=== PATIENT | female | born 1955 | race Two or more races ===

== ENCOUNTER 2024-04-21 13:16 | Outpatient (AMB) | payer MEDICAID, SELFPAY ==
--- NOTE | 2024-04-21 13:45 | PD.ORTHCLVIS ---
Vital signs 04/21/24 13:49 Height 1.68 m Height Method Stated Weight 64.41 kg Weight Measurement Method Standing Scale BMI 22.8 BP 150/75 H Blood Pressure Source Automatic Cuff Blood Pressure Location Left Upper Arm Position Sitting Respiration 18 Pulse 76 Pulse Source Monitor Temp 97.3 F Temp Source Temporal Artery Scan Pulse Oximetry (%) 97 Oxygen Delivery Method Room Air Med/Allergies Allergies & Medications Allergies No Known Allergies Allergy (Verified 04/21/24 13:50) Medication Reconciliation amlodipine 2.5 mg tablet 2.5 mg PO QDAY 04/21/24 [History Confirmed 04/21/24] aspirin 81 mg tablet,delayed release 81 mg PO QDAY 04/21/24 [History Confirmed 04/21/24] atorvastatin 80 mg tablet 80 mg PO QDAY 04/21/24 [History Confirmed 04/21/24] benazepril 5 mg tablet 5 mg PO QDAY 04/21/24 [History Confirmed 04/21/24] Exam Exam Breathing is nonlabored. Patient has a normal mood and affect. Bilateral extremities were evaluated and demonstrates sensation intact to light touch. Palpable pedal pulses are present. No significant edema is present. Bilateral hips were examined. The patient has no pain with log roll of the hips. Internal rotation to 30 degrees and external rotation to 30 degrees is painless. Negative FADIR. Left knee was examined today. The left knee is in reasonable alignment. Range of motion from 0-120 degrees. Knee is stable to varus and valgus as well as AP translation with <5mm. Patient has a negative McMurrays. There is no pain with patellofemoral compression and no crepitus noted. The knee is nontender to palpation. The right knee was also examined. The right knee is in varus alignment. Range of motion from 0-115 degrees. Knee is stable to varus and valgus as well as AP translation with <5mm. Patient has a negative McMurrays. There is no pain with patellofemoral compression and no crepitus noted. The knee is tender to palpation medially. Assessment and Plan Problem List (1) Arthritis of right knee: Status: Acute Plan: Patient is a 61-year-old female with severe right knee arthritis. The pain is significantly affecting her quality life and happiness. We need weightbearing x-rays that I can view. Her report says that there is severe arthritis We will see her back after x-rays are done Advanced Care Planning Discussion Advance care planning discussed with:: patient Office Procedures GNS Level of Care Nursing/Assessment Patient Status: Initial/New Patient Nursing Assessment/Reassesment: Medication Reconciliation, Update PMH in EMR and Vital Signs Coordination of Care: Complex Care and Chronic Disease 1-5, Education Complex Pt/Fam, Consent,records obtained, informed consent, 1 Ins Authorization, Lab and Imaging orders, Results/Orders obtained and Staff clarify orders New Patient Charge New Patient Point Assignment: 1124 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 4 ([id number]) MA Intake Visit Data Collection New Patient or Established: New Patient (never been to [facility]) Reason for Visit:: RIGHT KNEE PAIN Seen by Clinical Staff ONLY (RN/MA): No 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 This been ongoing for a while. She was told she has severe arthritis and needs a knee replacement. The pain is affecting her quality life and happiness. She is walking with a severe limp and uses a walker. She has had multiple injections and has tried anti-inflammatories. She reports her diabetes is well-controlled Pain Pain level (0-10): 10 Pain duration: ALL DAY Pain quality: sharp Associated signs & symptoms: none Ambulatory data Ambulatory device: none Treatments Improvement with previous injections: No Improvement with PT: No Improvement with NSAIDS: no Review of Systems Review of Systems: All systems negative unless otherwise noted in HPI.
[2024-04-21 13:49] VITALS: BP 150/75; PULSE 76; RESP 18; TEMP 36.3; O2SAT 97; BMI 22.8
== END 2024-04-21 14:11 | disposition home or self-care (01) ==
LOC: HODSRG 13:16
PROVIDERS: Supervising Provider Orthopaedic Surgery Adult Reconstructive Orthopaedic Surgery; Visit Provider Orthopaedic Surgery Adult Reconstructive Orthopaedic Surgery
DX: M17.11 Unilateral primary osteoarthritis, right knee (principal); M25.562 Pain in left knee; M25.561 Pain in right knee; I10 Essential (primary) hypertension; E11.9 Type 2 diabetes mellitus without complications
CPT/HCPCS: 99204; G0463

== ENCOUNTER 2024-05-11 09:07 | Outpatient (AMB) | payer MEDICAID, SELFPAY ==
--- NOTE | 2024-05-11 09:55 | ORTHONT_ITS ---
Vital signs 05/11/24 09:56 Height 1.68 m Height Method Stated Weight 63.758 kg Weight Measurement Method Standing Scale BMI 22.6 BP 150/82 H Blood Pressure Source Automatic Cuff Blood Pressure Location Right Upper Arm Position Sitting Respiration 19 Pulse 60 Pulse Source Monitor Temp 97.8 F Temp Source Temporal Artery Scan Pulse Oximetry (%) 96 Oxygen Delivery Method Room Air Med/Allergies Allergies & Medications Allergies No Known Allergies Allergy (Verified 05/11/24 10:01) Medication Reconciliation amlodipine 2.5 mg tablet 2.5 mg PO QDAY 04/21/24 [History Confirmed 05/11/24] aspirin 81 mg tablet,delayed release 81 mg PO QDAY 04/21/24 [History Confirmed 05/11/24] atorvastatin 80 mg tablet 80 mg PO QDAY 04/21/24 [History Confirmed 05/11/24] benazepril 5 mg tablet 5 mg PO QDAY 04/21/24 [History Confirmed 05/11/24] Exam Exam Breathing is nonlabored. Patient has a normal mood and affect. Bilateral extremities were evaluated and demonstrates sensation intact to light touch. Palpable pedal pulses are present. No significant edema is present. Bilateral hips were examined. The patient has no pain with log roll of the hips. Internal rotation to 30 degrees and external rotation to 30 degrees is painless. Negative FADIR. Left knee was examined today. The left knee is in reasonable alignment. Range of motion from 0-120 degrees. Knee is stable to varus and valgus as well as AP translation with <5mm. Patient has a negative McMurrays. There is no pain with patellofemoral compression and no crepitus noted. The knee is nontender to palpation. The right knee was also examined. The right knee is in varus alignment. Range of motion from 0-115 degrees. Knee is stable to varus and valgus as well as AP translation with <5mm. Patient has a negative McMurrays. There is no pain with patellofemoral compression and no crepitus noted. The knee is tender to palpation medially. Patient has bilateral knee arthritis of significant severity worse on the right. There is complete obliteration of the medial joint space Assessment and Plan Problem List (1) Arthritis of right knee: Status: Acute Plan: Patient is a 61-year-old female with severe right knee arthritis. The pain is significantly affecting her quality life and happiness. We discussed total knee replacement is a reasonable option given her failure of conservative treatment. She would like to start on the right as this is significantly worse The nature and purpose of the total knee replacement, alternative method(s) of treatment, the material risks involved, and the possibility of complications were fully explained to the patient. The patient does NOT have any of the following contraindications to TKA: - Active infection of the knee joint, OR - Active systemic bacteremia, OR - Active skin infection or open wound at surgical site, OR - Neuropathic arthritis, OR - Severe, rapidly progressive neurological disease, OR - Severe medical condition that makes risks of surgery outweigh the potential benefit The patient was told the most common risks and complications associated with a total knee replacement include, but are not limited to: blood clots in the leg, fatal pulmonary embolism, dislocation of the prosthesis, intraoperative and postoperative fractures of the femur or tibia, infection, failure of the prosthesis or grafting materials, complications from anesthesia, reactions to blood transfusions, postoperative leg length inequality, instability of the knee replacement, nerve damage or injury, vascular injury, delayed wound healing, infection, other injury or even . In addition, there are risks associated with anesthesia given during this operation. Also, the patient was told that after undergoing a total knee replacement there may still be persistent pain or disability. The patient was informed that the success of this operation in part depends upon the mechanical devices which are going to be implanted and that these devices can fail or malfunction, and may need to be repaired or replaced and there are no guarantees as to the longevity of this device or its parts and that it or its parts could fail prematurely. The patient was also notified that during the course of surgery, there may be a need to use bone graft from donors, and that any bone graft used will be carefully screened for communicable diseases, including AIDS, hepatitis, Ja kob-Creutzfeldt, or other diseases, but despite the screening procedures, there is a small chance that they could contract one of these diseases. Finally, the patient was asked to follow completely and fully with all advice and recommended treatments, and that recovery and ultimate outcome are affected by their compliance with recommended treatment. We discussed the risks, benefits and treatment alternatives, and the patient is interested in proceeding with surgery. We will try to set this up as expeditiously as possible. Advanced Care Planning Discussion Advance care planning discussed with:: patient Office Procedures GNS Level of Care Nursing/Assessment Patient Status: Established Patient Nursing Assessment/Reassesment: Medication Reconciliation, Update PMH in EMR and Vital Signs Coordination of Care: Complex Care and Chronic Disease 1-5, Education Complex Pt/Fam, Consent,records obtained, informed consent, Results/Orders obtained and Staff clarify orders Established Patient Charge Established Patient Point Assignment: 95 Established Patient Point Charge: EP Level 3 (80-115) MA Intake Visit Data Collection New Patient or Established: Established Patient (seen at [facility] within 3 years) Reason for Visit:: XRAY RESULTS Seen by Clinical Staff ONLY (RN/MA): No Pharmacy Order Entry Technician Required: No PCP or OBGYN visit in last 3 months: Yes Hx Now: No Do You Feel Safe at Home: Yes Authorities Contacted: N/A Questionairres Past Medical History Past Medical History Have you ever been diagnosed with any of the following: Cardiology Problems Hypertension: Yes Subjective Visit Visit for: follow up visit, knee (RIGHT) and x-rays (RESULTS) Immunization / Flu Flu Vaccine in the Last 12 Months: No Flu Vaccine Exclusion Criteria: No Exclusion Criteria History of Present Illness Chief complaint: Bilateral knee total Patient is a pleasant 69-year-old female with bilateral knee pain worse on the right. This has been ongoing for a while. She was told she has severe arthritis and needs a knee replacement. The pain is affecting her quality life and happiness. She is walking with a severe limp and uses a walker. She has had multiple injections and has tried anti-inflammatories. She reports her diabetes is well-controlled. Pain Pain level (0-10): 6 Pain duration: CONSTANT Pain location: inside (medial) and anterior Pain quality: dull and aching Pain timing: night, increases with activity and stairs Associated signs & symptoms: numbness and weakness Ambulatory data Ambulatory device: none Treatments Improvement with previous injections: No Improvement with PT: No Improvement with NSAIDS: no Review of Systems Review of Systems: All systems negative unless otherwise noted in HPI.
[2024-05-11 09:56] VITALS: BP 150/82; PULSE 60; RESP 19; TEMP 36.6; O2SAT 96; BMI 22.6
== END 2024-05-11 10:25 | disposition home or self-care (01) ==
LOC: HODSRG 09:07
PROVIDERS: Supervising Provider Orthopaedic Surgery Adult Reconstructive Orthopaedic Surgery; Visit Provider Orthopaedic Surgery Adult Reconstructive Orthopaedic Surgery
DX: M17.11 Unilateral primary osteoarthritis, right knee (principal); M25.562 Pain in left knee; M25.561 Pain in right knee; I10 Essential (primary) hypertension; E11.9 Type 2 diabetes mellitus without complications
CPT/HCPCS: 99213; G0463

== ENCOUNTER → 2024-05-11 | Outpatient (CLI) | payer MEDICAID, SELFPAY ==
--- NOTE | 2024-05-11 07:30 | XR_ITS ---
Examination: CT right lower extremity, without contrast. 2-D sagittal reconstructions. 2-D coronal reconstructions. 3-D reconstructions. Date and time of exam:May 11, 2024 0845 hours INDICATIONS: Diagnosis primary unilateral osteoarthritis right knee right knee pain 10 years CTDI: vol (mGy):8.85 DLP: (mGycm):652 Technique: Multiple 1.25 mm axial sections of the right lower extremity without intravenous contrast have been obtained. 2-D sagittal and coronal reconstructions have been obtained. 3-D reconstructions have been obtained. Low dose protocols were performed. One or more of the following dose reduction techniques were used; automated exposure control, adjustment of the mA and/or KV according to patient size, use of iterative reconstruction technique. Findings: Significant osteopenia Moderate narrowing right hip joint no right hip fracture or dislocation Advanced right knee tricompartment osteoarthritis, most severe narrowing medial joint space No fracture No dislocation IMPRESSION: Advanced right knee tricompartment osteoarthritis
== END | disposition home or self-care (01) ==
LOC: CCTX 08:34
PROVIDERS: Referring Provider Orthopaedic Surgery Adult Reconstructive Orthopaedic Surgery; Visit Provider Orthopaedic Surgery Adult Reconstructive Orthopaedic Surgery
DX: M17.11 Unilateral primary osteoarthritis, right knee (principal)
CPT/HCPCS: 73700

== ENCOUNTER 2024-05-29 10:00 | Day surgery (SDC) | payer MEDICAID, SELFPAY ==
[2024-05-25 07:17] VITALS: BMI 27.1
[2024-05-25 08:44] LABS: Basophils # (Auto) 0.1 Thou/mm3 (0.0-0.2); Basophils % (Auto) 1 % (0-2.5); Eosinophils # (Auto) 0.4 Thou/mm3 (0.0-0.5); Eosinophils % (Auto) 4 % (0-10); Hematocrit 37.5 % (36.0-46.0); Hemoglobin 12.6 g/dL (12.0-16.0); Immature Granulocytes % (Auto) 1 % (0-0); Immature Granulocytes Auto 0.06 Thou/mm3 (0.00-0.00); Lymphocytes # (Auto) 3.1 Thou/mm3 (1.0-4.8); Lymphocytes % (Auto) 27 % (10-50); Mean Corpuscular HGB Conc 33.6 g/dl (31.0-37.0); Mean Corpuscular Hemoglobin 28.3 pg (25.0-35.0); Mean Corpuscular Volume 84 fL (80-100); Monocytes # (Auto) 0.8 Thou/mm3 (0.0-0.8); Monocytes % (Auto) 7 % (0-12); Neutrophils # (Auto) 7.2 Thou/mm3 (1.8-7.7); Neutrophils % (Auto) 62 % (37-80); Nucleated Red Blood Cell % 0 /100 WBC (0); Platelet Count 306 Thou/mm3 (140-440); RDW Standard Deviation 37.3 fL (36.4-46.3); Red Blood Count 4.46 Miln/mm3 (4.00-5.20); White Blood Count 11.7 Thou/mm3 (3.6-11.0)
[2024-05-25 09:05] LABS: Alanine Aminotransferase 28 U/L (10-49); Albumin, Serum 4.5 gm/dL (3.4-4.8); Albumin/Globulin Ratio 1.3 (1.2-2.2); Alkaline Phosphatase 94 U/L (46-116); Anion Gap 7 (7-16); Aspartate Amino Transferase 24 U/L (0-34); BUN/Creatinine Ratio 33 Ratio (12-20); Bilirubin,Total 0.5 mg/dL (0.3-1.2); Blood Urea Nitrogen 20 mg/dL (9-23); Calcium 9.9 mg/dL (8.3-10.6); Calcium (Corrected) 9.9 mg/dL (8.5-10.1); Carbon Dioxide 28.3 mMol/L (20.0-31.0); Chloride 100 mMol/L (98-107); Creatinine (Component) 0.6 mg/dL (0.6-1.3); Estimated Creatinine Clearance 77.6 mL/min (>60); Globulin 3.5 gm/dL (2.3-3.5); Glucose 110 mg/dL (74-106); Osmolality,Calculated 273 (275-295); Potassium 4.3 mMol/L (3.4-5.1); Sodium 135 mMol/L (136-145); eGFR > 60 See Note
[2024-05-25 09:16] LABS: INR 1.1 (0.9-1.3); Prothrombin Time 11.5 Seconds (9.0-12.2)
--- NOTE | 2024-05-26 12:01 | SUR.PREOP ---
Pt' son in law, Randy notified to bring pt at [address] for surgery.
[2024-05-29] VITALS (11 sets, daily range): BP systolic 144–168; BP diastolic 73–83; PULSE 56–78; RESP 12–20; TEMP 36.2–36.8; O2SAT 95–100; BMI 26.5
[2024-05-29] MEDS: ACETAMINOPHEN 325 MG TABLET 650 MG PO (10:41)
[2024-05-29] MEDS: PREGABALIN 75 MG CAPSULE PO (10:42)
[2024-05-29] MEDS: MELOXICAM 7.5 MG TABLET PO (10:42)
[2024-05-29] MEDS: RINGERS LACTATED 1000 ML 1,000 ML 20 ML IV (10:45)
--- NOTE | 2024-05-29 13:52 | ESOP_ITS ---
Date of Procedure 05/29/24 Pre Op Diagnosis right knee osteoarthritis Post Op Diagnosis right knee osteoarthritis Procedure right total knee replacement conchis Findings full thickness cartilage loss and osteophytes Procedure Description Indication: The patient is a 69 year old who has a long history of right knee pain. X-rays show degenerative arthritis involving the knee. Over the past several years the patient has had increasing pain, progressive limitation in function. He has failed conservative measures including activity modification, physical therapy, injections, anti-inflammatories, and assistive devices. After a lengthy discussion of the risks and benefits, the patient presents now for total knee replacement. The nature and purpose of the total knee replacement, alternative method(s) of treatment, the material risks involved, and the possibility of complications were fully explained to the patient. The patient was told the most common risks and complications associated with a total knee replacement include, but are not limited to blood clots in the leg, fatal pulmonary embolism, dislocation of the prosthesis, intraoperative and postoperative fractures of the femur or tibia, infection, failure of the prosthesis or grafting materials, complications from anesthesia, reactions to blood transfusions, postoperative leg length inequality, instability of the knee replacement, nerve damage or injury, vascular injury, delayed wound healing, infections, other injury or even . In addition, there are risks associated with anesthesia given during this operation, temporary or permanent numbness on the skin lateral to the incision can be a complication unique to total knee surgery, and kneeling can be painful after knee replacement surgery. Also, the patient was told that after undergoing a total knee replacement there may still be pain or disability. We discussed with the patient that we will be using a robot-assisted technology. We discussed that there is a possibility of converting to manual instrumentation. The patient was informed that the success of this operation in part depends upon the mechanical devices which are going to be implanted and that these devices can fail or malfunction, and may need to be repaired or replaced and there are no guarantees as to the longevity of this device or its part and that it or its parts could fail prematurely. Finally, the patient was asked to follow completely and fully with all advice and recommended treatments, and that recovery and ultimate outcome are affected by their compliance with recommended treatment. Surgical technique: Patient was marked and consented in the pre-operative area. The patient was brought to the operating room and placed on the operating table in a supine position. Prior to positioning, a timeout procedure was performed between the surgeon, the anesthesiologist, and the nursing staff where the patient and the operative side were identified and confirmed. After adequate general anesthetic was obtained, the right lower extremity was prepped and draped in the usual sterile fashion. A weight based dose of Cefazolin were administered within 1 hour prior to incision. The robot was preregistered and calirated before the incision. The extremity was exsanguinated with an esmarch badge and tourniquet inflated to 250mmHg. A midline incision was made. A median parapatellar arthrotomy was made. The patella was subluxed laterally. A medial release was performed to expose the medial tibia. His femoral and tibial pins were placed through an intra incisional manner for both cases. Every effort was made to ensure that the distalmost aspect of the pin was hung in the second cortex. The arrays were then tightened several times to ensure that it was fixed for the remainder of the case. Both femoral and tibial checkpoints were then placed. We then went through the registration process of the bone. We then assessed the knee deformity and attempted to correct it. We also used the robot to aid in judging laxity in both extension and flexion. Final based on laxity and alignment we changed the preoperative assessment to obtain proper proper implant positioning and to correct deformity. Attention was then placed to the tibia. We made a tibial cut using the robot ensuring that both the MCL and the patella tendon were protected with retractors. We then went to the femur and made the posterior cut followed by the anterior cut and the anterior chamfer. The bone was then removed and we made a distal femur cut and a posterior chamfer cut. We verified all cuts. A trial reduction was performed with a size 2 femoral component and a size 2 keeled tibial component. The patella tracked centrally, and no lateral retinacular release was necessary. The trial implants were removed. The arrays, pins, and checkpoints were all removed. We performed a verification that all pins were removed. The cut bone surfaces were lavaged. A size 2 right femoral component, a size 2 keeled tibial component were impacted into position. The knee was felt to be well balanced in the sagittal and coronal plane. The final 2x10 mm cruciate- substituting articular insert was impacted into the tibial tray. The knee was brought out to full extension, flexed up to 120 degrees. It was stable to varus and valgus stress and appropriately balanced in flexion and extension. The wounds were copiously irrigated following deflation of tourniquet. The medial retinaculum was reapproximated with #1 vicryl and quill. The subcutaneous tissues were closed with 0 and 2-0 interrupted Vicryl. The skin was closed with 3-0 Monofilament V loc suture. A sterile dressing was applied. The patient was transferred to a bed and brought to recovery in stable condition. The patient tolerated the procedure well. There were no intraoperative complications. Sponge and needle counts were correct times 2. As the attending surgeon, I attest I was present and performed the entire operation. Grafts/Implants Size 2 CR Femur Size 2 Tibia 10mm poly CS Anesthesia GETA Implants none Pathology / specimen None Pathology comment: none Estimated Blood Loss 150 Condition Stable Disposition same day Surgeon Jb Mosley MD Surgical Staff Operation Date: 05/29/24 14:15 Case Staff Anesthesiologist: Jairo Schmidt RN First Assistant: Odilia Briscoe
--- NOTE | 2024-05-29 13:59 | XR_ITS ---
Examination: Right knee 2 views Technique one AP lateral right knee 2 views Exam date 9: May 29, 2024 1415 hours INDICATIONS: Postop right knee replacement today. FINDINGS: Total right knee arthroplasty. Satisfactory alignment. Moderate osteopenia. No fracture. IMPRESSION: Total right knee arthroplasty with satisfactory alignment
--- NOTE | 2024-05-29 14:11 | SUR.PHASEI ---
1411: Pt. AAOx4, vitals stable, breathing unlabored, no complaint of pain or nausea, dressing to right knee CDI, no active bleed noted, pt. able to wiggle bilateral feet, cap refill to bilateral feet less than 3 seconds, bilateral dorsalis pedis pulses strong and regular, report received from Teodoro ALLEN and Tawnya ALLEN.
--- NOTE | 2024-05-29 16:10 | SUR.PHASEII ---
1610: Pt. AAOx4, vitals stable, breathing unlabored, no complaint of pain or nausea, dressing to right knee CDI, no active bleed noted, bilateral dorsalis pedis pulses strong and regular, cap refill to bilateral feet less than 3 seconds, pt. ambulated with PT, Tolerated well, pt. tolerated sips of water well, gave discharge instructions to the pt. and her ride, both verbalized understanding and had no further questions. Pt. left with all personal belongings.
== END 2024-05-29 16:10 | disposition home or self-care (01) ==
PROVIDERS: Anesthesiology; PCP Physician Assistant; Referring Provider Orthopaedic Surgery Adult Reconstructive Orthopaedic Surgery; Visit Provider Orthopaedic Surgery Adult Reconstructive Orthopaedic Surgery
PROC: (CPT 27447; principal; 2024-05-29 14:15)
DX: M17.11 Unilateral primary osteoarthritis, right knee (principal)
CPT/HCPCS: 27447; 20985; 36415; 73560; 80053; 85025; 85610; 85730; 97162; A4217; C1713; C1776; J0131; J0690; J1100; J2250; J2371; J2405; J2704; J2795; J3010; J3490; J7030; J7120; J7999; A4648; A4649; A9270

== ENCOUNTER 2024-06-16 14:31 | Outpatient (AMB) | payer MEDICAID, SELFPAY ==
[2024-06-16 14:44] VITALS: BP 154/77; PULSE 72; RESP 18; TEMP 36.5; O2SAT 97; BMI 27.1
--- NOTE | 2024-06-16 14:44 | ORTHONT_ITS ---
Vital signs 06/16/24 14:44 Height 1.55 m Height Method Stated Weight 65.346 kg Weight Measurement Method Standing Scale BMI 27.1 BP 154/77 H Blood Pressure Source Automatic Cuff Blood Pressure Location Right Upper Arm Position Sitting Respiration 18 Pulse 72 Pulse Source Monitor Temp 97.7 F Temp Source Temporal Artery Scan Pulse Oximetry (%) 97 Oxygen Delivery Method Room Air Med/Allergies Allergies & Medications Allergies No Known Allergies Allergy (Verified 06/16/24 14:48) Medication Reconciliation amlodipine 2.5 mg tablet 2.5 mg PO QDAY 04/21/24 [History Confirmed 06/16/24] aspirin 81 mg tablet,delayed release 81 mg PO QDAY 04/21/24 [History Confirmed 06/16/24] atorvastatin 80 mg tablet 80 mg PO QDAY 04/21/24 [History Confirmed 06/16/24] benazepril 40 mg tablet 40 mg PO QDAY 05/25/24 [History Confirmed 06/16/24] metformin 850 mg tablet 850 mg PO QDAY 05/25/24 [History Confirmed 06/16/24] acetaminophen 500 mg tablet (Acetaminophen Extra Strength) 1,000 mg (2 x 500 mg) PO Q6H PRN pain #90 tabs 05/29/24 [Rx Confirmed 06/16/24] aspirin 81 mg tablet,delayed release 81 mg PO BID #60 tabs 05/29/24 [Rx Confirmed 06/16/24] doxycycline hyclate 100 mg tablet 100 mg PO BID #14 tabs 05/29/24 [Rx Confirmed 06/16/24] gabapentin 300 mg capsule 300 mg PO .qhs #30 caps 05/29/24 [Rx Confirmed 06/16/24] sennosides 8.6 mg-docusate sodium 50 mg tablet (Senna-S) 1 tab-cap PO QDAY #30 tabs 05/29/24 [Rx Confirmed 06/16/24] oxycodone 5 mg tablet 5 mg PO Q6H PRN pain #28 tabs 06/16/24 [Rx] pantoprazole 40 mg tablet,delayed release 40 mg PO QDAY #30 tabs 06/16/24 [Rx] Exam Exam Breathing is nonlabored. Patient has a normal mood and affect. Bilateral extremities were evaluated and demonstrates sensation intact to light touch. Palpable pedal pulses are present. No significant edema is present. Bilateral hips were examined. The patient has no pain with log roll of the hips. Internal rotation to 30 degrees and external rotation to 30 degrees is painless. Negative FADIR. Left knee was examined today. The left knee is in reasonable alignment. Range of motion from 0-120 degrees. Knee is stable to varus and valgus as well as AP translation with <5mm. Patient has a negative McMurrays. There is no pain with patellofemoral compression and no crepitus noted. The knee is nontender to palpation. Right knee incision is clean dry intact. Range of motion is 0 to 100 degrees Assessment and Plan Problem List (1) Arthritis of right knee: Status: Acute Plan: Patient is a 61-year-old female Status post right total knee replacement. She is doing well. She has been pain. She should start outpatient physical therapy and we will see her in approximately 4 weeks Advanced Care Planning Discussion Advance care planning discussed with:: patient Office Procedures GNS Level of Care Nursing/Assessment Patient Status: Established Patient Nursing Assessment/Reassesment: Medication Reconciliation, Update PMH in EMR and Vital Signs Coordination of Care: Complex Care and Chronic Disease 1-5, Education Complex Pt/Fam, Consent,records obtained, informed consent, Lab and Imaging orders, Results/Orders obtained and Staff clarify orders Special Needs: Language special needs Established Patient Charge Established Patient Point Assignment: 110 Established Patient Point Charge: EP Level 3 (80-115) MA Intake Visit Data Collection New Patient or Established: Established Patient (seen at [facility] within 3 years) Reason for Visit:: 2 WKS POST OP Seen by Clinical Staff ONLY (RN/MA): No Verbal consent obtained for Telemed visit?: No Instructional Coordinator Required: Yes PCP or OBGYN visit in last 3 months: Yes Hx Now: No Do You Feel Safe at Home: Yes Authorities Contacted: N/A Questionairres Past Medical History Past Medical History Have you ever been diagnosed with any of the following: Neurological Problems Seizures: No Cardiology Problems Hypercholesterolemia: Yes Congestive Heart Failure: No Hypertension: Yes Respiratory Problems Chronic Obstructive Pulmonary Disease (COPD): No Stomache/Intestinal Problems Hepatitis: No Genital/Urinary Problems Renal Disease: No Reproductive Problems Previous Pregnancies: Yes Musculoskeletal Problems Arthritis: Yes Head,Eye,Nose,Throat Problems Cataracts: Yes (Left) Endocrine Problems Diabetes Mellitus Type 1: No Diabetes Mellitus Type 2: Yes Other Problems Hospitalization: No Shingles: No Blood Transfusions: No Blood Transfusion Reaction: No Anesthesia Reactions: No Chicken Pox: No Cancer: No Subjective Visit Visit for: post op #1 and knee Immunization / Flu Flu Vaccine in the Last 12 Months: No Flu Vaccine Exclusion Criteria: No Exclusion Criteria History of Present Illness Chief complaint: 2 WK POST OP Patient is 2-1/2 weeks out from a right total knee replacement he is doing well. She has minimal pain. Incision looks great. Pain Pain level (0-10): 4 Pain duration: ALL DAY Pain location: inside (medial), outside (lateral), anterior and posterior Pain quality: sharp, dull and aching Pain timing: increases with activity Associated signs & symptoms: none Ambulatory data Ambulatory device: cane Treatments Improvement with previous injections: No Improvement with PT: No Improvement with NSAIDS: no Review of Systems Review of Systems: All systems negative unless otherwise noted in HPI.
== END 2024-06-16 15:10 | disposition home or self-care (01) ==
LOC: HODSRG 14:31
PROVIDERS: PCP Physician Assistant; Referring Provider Physician Assistant; Supervising Provider Orthopaedic Surgery Adult Reconstructive Orthopaedic Surgery; Visit Provider Orthopaedic Surgery Adult Reconstructive Orthopaedic Surgery
DX: M17.11 Unilateral primary osteoarthritis, right knee (principal); E78.00 Pure hypercholesterolemia, unspecified; I10 Essential (primary) hypertension; E11.9 Type 2 diabetes mellitus without complications
CPT/HCPCS: 99213; G0463

== ENCOUNTER 2024-07-18 09:36 | Outpatient (AMB) | payer MEDICAID, SELFPAY ==
[2024-07-18 10:05] VITALS: BP 155/83; PULSE 76; RESP 18; TEMP 36.7; O2SAT 96; BMI 26.5
--- NOTE | 2024-07-18 10:05 | PD.ORTHCLVIS ---
Vital signs 07/18/24 10:05 Height 1.55 m Height Method Stated Weight 63.73 kg Weight Measurement Method Standing Scale BMI 26.5 BP 155/83 H Blood Pressure Source Automatic Cuff Blood Pressure Location Left Upper Arm Position Sitting Respiration 18 Pulse 76 Pulse Source Monitor Temp 98.0 F Temp Source Temporal Artery Scan Pulse Oximetry (%) 96 Oxygen Delivery Method Room Air Med/Allergies Allergies & Medications Allergies No Known Allergies Allergy (Verified 07/18/24 10:05) Medication Reconciliation amlodipine 2.5 mg tablet 2.5 mg PO QDAY 04/21/24 [History Confirmed 07/18/24] atorvastatin 80 mg tablet 80 mg PO QDAY 04/21/24 [History Confirmed 07/18/24] benazepril 40 mg tablet 40 mg PO QDAY 05/25/24 [History Confirmed 07/18/24] metformin 850 mg tablet 850 mg PO QDAY 05/25/24 [History Confirmed 07/18/24] acetaminophen 500 mg tablet (Acetaminophen Extra Strength) 1,000 mg (2 x 500 mg) PO Q6H PRN pain #90 tabs 05/29/24 [Rx Confirmed 07/18/24] aspirin 81 mg tablet,delayed release 81 mg PO BID #60 tabs 05/29/24 [Rx Confirmed 07/18/24] doxycycline hyclate 100 mg tablet 100 mg PO BID #14 tabs 05/29/24 [Rx Confirmed 07/18/24] gabapentin 300 mg capsule 300 mg PO .qhs #30 caps 05/29/24 [Rx Confirmed 07/18/24] sennosides 8.6 mg-docusate sodium 50 mg tablet (Senna-S) 1 tab-cap PO QDAY #30 tabs 05/29/24 [Rx Confirmed 07/18/24] oxycodone 5 mg tablet 5 mg PO Q6H PRN pain #28 tabs 06/16/24 [Rx Confirmed 07/18/24] pantoprazole 40 mg tablet,delayed release 40 mg PO QDAY #30 tabs 06/16/24 [Rx Confirmed 07/18/24] Exam Exam Breathing is nonlabored. Patient has a normal mood and affect. Bilateral extremities were evaluated and demonstrates sensation intact to light touch. Palpable pedal pulses are present. No significant edema is present. Bilateral hips were examined. The patient has no pain with log roll of the hips. Internal rotation to 30 degrees and external rotation to 30 degrees is painless. Negative FADIR. Left knee was examined today. The left knee is in reasonable alignment. Range of motion from 0-120 degrees. Knee is stable to varus and valgus as well as AP translation with <5mm. Patient has a negative McMurrays. There is no pain with patellofemoral compression and no crepitus noted. The knee is nontender to palpation. Right knee incision is clean dry intact. Range of motion is 0 to 100 degrees Assessment and Plan Problem List (1) Arthritis of right knee: Status: Acute Plan: Patient is a 61-year-old female Status post right total knee replacement. She is doing well. She has been pain. She should start outpatient physical therapy and we will see her in approximately 6 weeks Advanced Care Planning Discussion Advance care planning discussed with:: patient and child Office Procedures GNS Level of Care Nursing/Assessment Patient Status: Established Patient Nursing Assessment/Reassesment: Medication Reconciliation, Update PMH in EMR and Vital Signs Coordination of Care: Complex Care and Chronic Disease 1-5, Education Complex Pt/Fam, Consent,records obtained, informed consent, Results/Orders obtained and Staff clarify orders Established Patient Charge Established Patient Point Assignment: 95 Established Patient Point Charge: EP Level 3 (80-115) MA Intake Visit Data Collection New Patient or Established: Established Patient (seen at [facility] within 3 years) Reason for Visit:: 4 WEEK POST OP R TKA Seen by Clinical Staff ONLY (RN/MA): No Verbal consent obtained for Telemed visit?: No [employer] Required: No PCP or OBGYN visit in last 3 months: Yes Hx Now: No Do You Feel Safe at Home: Yes Authorities Contacted: N/A Questionairres Past Medical History Past Medical History Have you ever been diagnosed with any of the following: Neurological Problems Seizures: No Cardiology Problems Hypercholesterolemia: Yes Congestive Heart Failure: No Hypertension: Yes Respiratory Problems Chronic Obstructive Pulmonary Disease (COPD): No Smoking: No Smoking Exposure: No Stomache/Intestinal Problems Hepatitis: No Genital/Urinary Problems Renal Disease: No Reproductive Problems Previous Pregnancies: Yes Musculoskeletal Problems Arthritis: Yes Head,Eye,Nose,Throat Problems Cataracts: Yes (Left) Endocrine Problems Diabetes Mellitus Type 1: No Diabetes Mellitus Type 2: Yes Other Problems Hospitalization: No Shingles: No Blood Transfusions: No Blood Transfusion Reaction: No Anesthesia Reactions: No Chicken Pox: No Cancer: No Subjective Visit Visit for: follow up visit, post op #2 and knee Immunization / Flu Flu Vaccine in the Last 12 Months: No Flu Vaccine Exclusion Criteria: No Exclusion Criteria History of Present Illness Chief complaint: 6WK POST OP Patient is 6 weeks out from a right total knee replacement he is doing well. She has minimal pain. Incision looks great. Pain Pain level (0-10): 3 Pain duration: ON AND OFF Pain location: inside (medial) and anterior Pain quality: aching and tingling Pain timing: increases with activity Associated signs & symptoms: numbness Ambulatory data Ambulatory device: cane Treatments Improvement with previous injections: No Improvement with PT: No Improvement with NSAIDS: no Review of Systems Review of Systems: All systems negative unless otherwise noted in HPI.
== END 2024-07-18 10:23 | disposition home or self-care (01) ==
LOC: HODSRG 09:36
PROVIDERS: PCP Physician Assistant; Referring Provider Physician Assistant; Supervising Provider Orthopaedic Surgery Adult Reconstructive Orthopaedic Surgery; Visit Provider Orthopaedic Surgery Adult Reconstructive Orthopaedic Surgery
DX: M17.11 Unilateral primary osteoarthritis, right knee (principal); Z96.651 Presence of right artificial knee joint; E78.00 Pure hypercholesterolemia, unspecified; I10 Essential (primary) hypertension
CPT/HCPCS: 99213; G0463

== ENCOUNTER 2024-09-12 09:55 | Outpatient (AMB) | payer MEDICAID, SELFPAY ==
--- NOTE | 2024-09-12 10:39 | PD.ORTHCLVIS ---
Vital signs 09/12/24 10:40 Height 1.55 m Height Method Stated Weight 62.199 kg Weight Measurement Method Standing Scale BMI 25.9 BP 164/92 H Blood Pressure Source Automatic Cuff Blood Pressure Location Left Upper Arm Position Sitting Respiration 19 Pulse 72 Pulse Source Monitor Temp 97.7 F Temp Source Temporal Artery Scan Pulse Oximetry (%) 97 Oxygen Delivery Method Room Air Med/Allergies Allergies & Medications Allergies No Known Allergies Allergy (Verified 09/12/24 10:44) Medication Reconciliation amlodipine 2.5 mg tablet 2.5 mg PO QDAY 04/21/24 [History Confirmed 09/12/24] atorvastatin 80 mg tablet 80 mg PO QDAY 04/21/24 [History Confirmed 09/12/24] benazepril 40 mg tablet 40 mg PO QDAY 05/25/24 [History Confirmed 09/12/24] metformin 850 mg tablet 850 mg PO QDAY 05/25/24 [History Confirmed 09/12/24] acetaminophen 500 mg tablet (Acetaminophen Extra Strength) 1,000 mg (2 x 500 mg) PO Q6H PRN pain #90 tabs 05/29/24 [Rx Confirmed 09/12/24] aspirin 81 mg tablet,delayed release 81 mg PO BID #60 tabs 05/29/24 [Rx Confirmed 09/12/24] doxycycline hyclate 100 mg tablet 100 mg PO BID #14 tabs 05/29/24 [Rx Confirmed 09/12/24] gabapentin 300 mg capsule 300 mg PO .qhs #30 caps 05/29/24 [Rx Confirmed 09/12/24] sennosides 8.6 mg-docusate sodium 50 mg tablet (Senna-S) 1 tab-cap PO QDAY #30 tabs 05/29/24 [Rx Confirmed 09/12/24] oxycodone 5 mg tablet 5 mg PO Q6H PRN pain #28 tabs 06/16/24 [Rx Confirmed 09/12/24] pantoprazole 40 mg tablet,delayed release 40 mg PO QDAY #30 tabs 06/16/24 [Rx Confirmed 09/12/24] meloxicam 7.5 mg tablet 7.5 mg PO QDAY #45 tabs 09/12/24 [Rx] Exam Exam Breathing is nonlabored. Patient has a normal mood and affect. Bilateral extremities were evaluated and demonstrates sensation intact to light touch. Palpable pedal pulses are present. No significant edema is present. Bilateral hips were examined. The patient has no pain with log roll of the hips. Internal rotation to 30 degrees and external rotation to 30 degrees is painless. Negative FADIR. Left knee was examined today. The left knee is in reasonable alignment. Range of motion from 0-120 degrees. Knee is stable to varus and valgus as well as AP translation with <5mm. Patient has a negative McMurrays. There is no pain with patellofemoral compression and no crepitus noted. The knee is nontender to palpation. Right knee incision is clean dry intact. Range of motion is 0 to 100 degrees Assessment and Plan Problem List (1) Arthritis of right knee: Status: Acute Plan: Patient is a 61-year-old female Status post right total knee replacement. She is doing well. She has been pain. Outpatient physical therapy. I will send 3 months. She will need x-rays today. She is doing well and reports the pain is improved from before surgery Advanced Care Planning Discussion Advance care planning discussed with:: patient Office Procedures GNS Level of Care Nursing/Assessment Patient Status: Established Patient Nursing Assessment/Reassesment: Medication Reconciliation, Update PMH in EMR and Vital Signs Coordination of Care: Complex Care and Chronic Disease 1-5, Education Complex Pt/Fam, Consent,records obtained, informed consent, Results/Orders obtained and Staff clarify orders Established Patient Charge Established Patient Point Assignment: 95 Established Patient Point Charge: EP Level 3 (80-115) MA Intake Visit Data Collection New Patient or Established: Established Patient (seen at [facility] within 3 years) Reason for Visit:: 2 MTH F/U Seen by Clinical Staff ONLY (RN/MA): No PCP or OBGYN visit in last 3 months: Yes Hx Now: No Do You Feel Safe at Home: Yes Authorities Contacted: N/A Questionairres Past Medical History Past Medical History Have you ever been diagnosed with any of the following: Neurological Problems Seizures: No Cardiology Problems Hypercholesterolemia: Yes Congestive Heart Failure: No Hypertension: Yes Respiratory Problems Chronic Obstructive Pulmonary Disease (COPD): No Smoking: No Smoking Exposure: No Stomache/Intestinal Problems Hepatitis: No Genital/Urinary Problems Renal Disease: No Reproductive Problems Previous Pregnancies: Yes Musculoskeletal Problems Arthritis: Yes Head,Eye,Nose,Throat Problems Cataracts: Yes (Left) Endocrine Problems Diabetes Mellitus Type 1: No Diabetes Mellitus Type 2: Yes Other Problems Hospitalization: No Shingles: No Blood Transfusions: No Blood Transfusion Reaction: No Anesthesia Reactions: No Chicken Pox: No Cancer: No Subjective Visit Visit for: follow up visit and knee Immunization / Flu Flu Vaccine in the Last 12 Months: No Flu Vaccine Exclusion Criteria: No Exclusion Criteria History of Present Illness Chief complaint: 6WK POST OP Patient is 6 weeks out from a right total knee replacement he is doing well. She has some pain still. Incision looks great. Pain Pain level (0-10): 7 Pain duration: CONSTANT Pain location: inside (medial) and anterior Pain quality: sharp, dull, burning and tingling Pain timing: increases with activity Associated signs & symptoms: numbness Ambulatory data Ambulatory device: cane Treatments Improvement with previous injections: No Improvement with PT: No Improvement with NSAIDS: no Review of Systems Review of Systems: All systems negative unless otherwise noted in HPI.
[2024-09-12 10:40] VITALS: BP 164/92; PULSE 72; RESP 19; TEMP 36.5; O2SAT 97; BMI 25.9
--- NOTE | 2024-09-12 10:50 | XR_ITS ---
Examination: Bilateral AP knees standing single view Right knee PA lateral axial 3 views TECHNIQUE: Bilateral AP knees standing single view Right knee PA flexion standing, right knee lateral standing, right knee axial 3 views total 4 views INDICATIONS: Knee pain years. FINDINGS: Significant osteopenia. Total right knee arthroplasty. Satisfactory alignment No loosening of the prosthetic components Moderate thinning cartilage posterior surface patella Mild to moderate osteoarthritis medial lateral joint spaces left knee IMPRESSION: Total right knee arthroplasty with satisfactory alignment
== END 2024-09-12 10:54 | disposition home or self-care (01) ==
LOC: HODSRG 09:55
PROVIDERS: PCP Physician Assistant; Referring Provider Physician Assistant; Supervising Provider Orthopaedic Surgery Adult Reconstructive Orthopaedic Surgery; Visit Provider Orthopaedic Surgery Adult Reconstructive Orthopaedic Surgery
DX: M17.11 Unilateral primary osteoarthritis, right knee (principal); Z96.651 Presence of right artificial knee joint; I10 Essential (primary) hypertension; E78.00 Pure hypercholesterolemia, unspecified; E11.9 Type 2 diabetes mellitus without complications
CPT/HCPCS: 73564; 99213; G0463

== ENCOUNTER 2024-10-10 14:01 | Outpatient (AMB) | payer MEDICAID, SELFPAY ==
[2024-10-10 14:31] VITALS: BP 155/79; PULSE 81; RESP 18; TEMP 36.6; O2SAT 96; BMI 26.2
--- NOTE | 2024-10-10 14:31 | ORTHONT_ITS ---
Vital signs 10/10/24 14:31 Height 1.55 m Height Method Stated Weight 63.049 kg Weight Measurement Method Standing Scale BMI 26.2 BP 155/79 H Blood Pressure Source Automatic Cuff Blood Pressure Location Left Upper Arm Position Sitting Respiration 18 Pulse 81 Pulse Source Monitor Temp 97.8 F Temp Source Temporal Artery Scan Pulse Oximetry (%) 96 Oxygen Delivery Method Room Air Med/Allergies Allergies & Medications Allergies No Known Allergies Allergy (Verified 10/10/24 14:32) Medication Reconciliation amlodipine 2.5 mg tablet 2.5 mg PO QDAY 04/21/24 [History Confirmed 10/10/24] atorvastatin 80 mg tablet 80 mg PO QDAY 04/21/24 [History Confirmed 10/10/24] benazepril 40 mg tablet 40 mg PO QDAY 05/25/24 [History Confirmed 10/10/24] metformin 850 mg tablet 850 mg PO QDAY 05/25/24 [History Confirmed 10/10/24] acetaminophen 500 mg tablet (Acetaminophen Extra Strength) 1,000 mg (2 x 500 mg) PO Q6H PRN pain #90 tabs 05/29/24 [Rx Confirmed 10/10/24] aspirin 81 mg tablet,delayed release 81 mg PO BID #60 tabs 05/29/24 [Rx Confirmed 10/10/24] doxycycline hyclate 100 mg tablet 100 mg PO BID #14 tabs 05/29/24 [Rx Confirmed 10/10/24] gabapentin 300 mg capsule 300 mg PO .qhs #30 caps 05/29/24 [Rx Confirmed 10/10/24] sennosides 8.6 mg-docusate sodium 50 mg tablet (Senna-S) 1 tab-cap PO QDAY #30 tabs 05/29/24 [Rx Confirmed 10/10/24] oxycodone 5 mg tablet 5 mg PO Q6H PRN pain #28 tabs 06/16/24 [Rx Confirmed 10/10/24] pantoprazole 40 mg tablet,delayed release 40 mg PO QDAY #30 tabs 06/16/24 [Rx Confirmed 10/10/24] meloxicam 7.5 mg tablet 7.5 mg PO QDAY #45 tabs 10/10/24 [Rx] pantoprazole 40 mg tablet,delayed release 40 mg PO QDAY #30 tabs 10/10/24 [Rx] Exam Exam Breathing is nonlabored. Patient has a normal mood and affect. Bilateral extremities were evaluated and demonstrates sensation intact to light touch. Palpable pedal pulses are present. No significant edema is present. Bilateral hips were examined. The patient has no pain with log roll of the hips. Internal rotation to 30 degrees and external rotation to 30 degrees is painless. Negative FADIR. Left knee was examined today. The left knee is in reasonable alignment. Range of motion from 0-120 degrees. Knee is stable to varus and valgus as well as AP translation with <5mm. Patient has a negative McMurrays. There is no pain with patellofemoral compression and no crepitus noted. The knee is nontender to palpation. Right knee incision is clean dry intact. Range of motion is 0 to 100 degrees Assessment and Plan Problem List (1) Arthritis of right knee: Status: Acute Plan: Patient is a 61-year-old female Status post right total knee replacement. She is doing well. We will see her in 2 months for routine followup Advanced Care Planning Discussion Advance care planning discussed with:: patient and child Office Procedures GNS Level of Care Nursing/Assessment Patient Status: Established Patient Nursing Assessment/Reassesment: Medication Reconciliation, Update PMH in EMR and Vital Signs Coordination of Care: Complex Care and Chronic Disease 1-5, Education Complex Pt/Fam, Consent,records obtained, informed consent, Results/Orders obtained and Staff clarify orders Established Patient Charge Established Patient Point Assignment: 95 Established Patient Point Charge: EP Level 3 (80-115) MA Intake Visit Data Collection New Patient or Established: Established Patient (seen at [facility] within 3 years) Reason for Visit:: XRAY RESULTS Seen by Clinical Staff ONLY (RN/MA): No 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 PCP or OBGYN visit in last 3 months: Yes Hx Now: No Do You Feel Safe at Home: Yes Authorities Contacted: N/A Questionairres Past Medical History Past Medical History Have you ever been diagnosed with any of the following: Neurological Problems Seizures: No Cardiology Problems Hypercholesterolemia: Yes Congestive Heart Failure: No Hypertension: Yes Respiratory Problems Chronic Obstructive Pulmonary Disease (COPD): No Smoking: No Smoking Exposure: No Stomache/Intestinal Problems Hepatitis: No Genital/Urinary Problems Renal Disease: No Reproductive Problems Previous Pregnancies: Yes Musculoskeletal Problems Arthritis: Yes Head,Eye,Nose,Throat Problems Cataracts: Yes (Left) Endocrine Problems Diabetes Mellitus Type 1: No Diabetes Mellitus Type 2: Yes Other Problems Hospitalization: No Shingles: No Blood Transfusions: No Blood Transfusion Reaction: No Anesthesia Reactions: No Chicken Pox: No Cancer: No Subjective Visit Visit for: follow up visit and x-rays Immunization / Flu Flu Vaccine in the Last 12 Months: No Flu Vaccine Exclusion Criteria: No Exclusion Criteria History of Present Illness Chief complaint: 6WK POST OP Patient is 6 weeks out from a right total knee replacement he is doing well. She reports the pain is significantly better Pain Pain level (0-10): 3 Pain duration: ON AND OFF Pain location: anterior Pain quality: aching Pain timing: increases with activity Associated signs & symptoms: numbness Ambulatory data Ambulatory device: none Treatments Improvement with previous injections: No Improvement with PT: No Improvement with NSAIDS: no Review of Systems Review of Systems: All systems negative unless otherwise noted in HPI.
== END 2024-10-10 14:42 | disposition home or self-care (01) ==
LOC: HODSRG 14:01
PROVIDERS: PCP Physician Assistant; Referring Provider Physician Assistant; Supervising Provider Orthopaedic Surgery Adult Reconstructive Orthopaedic Surgery; Visit Provider Orthopaedic Surgery Adult Reconstructive Orthopaedic Surgery
DX: M17.11 Unilateral primary osteoarthritis, right knee (principal); Z96.651 Presence of right artificial knee joint; I10 Essential (primary) hypertension; E78.00 Pure hypercholesterolemia, unspecified; E11.9 Type 2 diabetes mellitus without complications
CPT/HCPCS: 99213; G0463

== ENCOUNTER 2025-01-23 11:08 | Outpatient (AMB) | payer MEDICAID, SELFPAY ==
--- NOTE | 2025-01-23 11:33 | PD.ORTHCLVIS ---
Vital signs 01/23/25 11:34 Height 1.55 m Height Method Measured Weight 63.163 kg Weight Measurement Method Standing Scale BMI 26.2 BP 164/83 H Blood Pressure Source Automatic Cuff Blood Pressure Location Left Upper Arm Position Sitting Respiration 20 Pulse 88 Pulse Source Monitor Temp 97.7 F Temp Source Temporal Artery Scan Pulse Oximetry (%) 97 Oxygen Delivery Method Room Air Med/Allergies Allergies & Medications Allergies No Known Allergies Allergy (Verified 01/23/25 11:35) Medication Reconciliation amlodipine 2.5 mg tablet 2.5 mg PO QDAY 04/21/24 [History Confirmed 01/23/25] atorvastatin 80 mg tablet 80 mg PO QDAY 04/21/24 [History Confirmed 01/23/25] benazepril 40 mg tablet 40 mg PO QDAY 05/25/24 [History Confirmed 01/23/25] metformin 850 mg tablet 850 mg PO QDAY 05/25/24 [History Confirmed 01/23/25] acetaminophen 500 mg tablet (Acetaminophen Extra Strength) 1,000 mg (2 x 500 mg) PO Q6H PRN pain #90 tabs 05/29/24 [Rx Confirmed 01/23/25] aspirin 81 mg tablet,delayed release 81 mg PO BID #60 tabs 05/29/24 [Rx Confirmed 01/23/25] doxycycline hyclate 100 mg tablet 100 mg PO BID #14 tabs 05/29/24 [Rx Confirmed 01/23/25] gabapentin 300 mg capsule 300 mg PO .qhs #30 caps 05/29/24 [Rx Confirmed 01/23/25] sennosides 8.6 mg-docusate sodium 50 mg tablet (Senna-S) 1 tab-cap PO QDAY #30 tabs 05/29/24 [Rx Confirmed 01/23/25] oxycodone 5 mg tablet 5 mg PO Q6H PRN pain #28 tabs 06/16/24 [Rx Confirmed 01/23/25] pantoprazole 40 mg tablet,delayed release 40 mg PO QDAY #30 tabs 06/16/24 [Rx Confirmed 01/23/25] meloxicam 7.5 mg tablet 7.5 mg PO QDAY #45 tabs 10/10/24 [Rx Confirmed 01/23/25] pantoprazole 40 mg tablet,delayed release 40 mg PO QDAY #30 tabs 01/23/25 [Rx] Exam Exam Breathing is nonlabored. Patient has a normal mood and affect. Bilateral extremities were evaluated and demonstrates sensation intact to light touch. Palpable pedal pulses are present. No significant edema is present. Bilateral hips were examined. The patient has no pain with log roll of the hips. Internal rotation to 30 degrees and external rotation to 30 degrees is painless. Negative FADIR. Left knee was examined today. The left knee is in reasonable alignment. Range of motion from 0-120 degrees. Knee is stable to varus and valgus as well as AP translation with <5mm. Patient has a negative Mc[place]rays. There is no pain with patellofemoral compression and no crepitus noted. The knee is nontender to palpation. Right knee incision is clean dry intact. Range of motion is 0 to 100 degrees Assessment and Plan Problem List (1) Arthritis of right knee: Status: Acute Plan: Patient is a 61-year-old female Status post right total knee replacement. She is doing well. We will see her in 2 months for routine followup Advanced Care Planning Discussion Advance care planning discussed with:: patient and child Office Procedures GNS Level of Care Nursing/Assessment Patient Status: Established Patient Nursing Assessment/Reassesment: Medication Reconciliation, Update PMH in EMR and Vital Signs Coordination of Care: Complex Care and Chronic Disease 1-5, Education Complex Pt/Fam, Consent,records obtained, informed consent, Results/Orders obtained and Staff clarify orders Established Patient Charge Established Patient Point Assignment: 95 Established Patient Point Charge: EP Level 3 (80-115) MA Intake Visit Data Collection New Patient or Established: Established Patient (seen at [facility] within 3 years) Reason for Visit:: F/U TKA Seen by Clinical Staff ONLY (RN/MA): No Smoke Jumper Supervisor Required: No PCP or OBGYN visit in last 3 months: Yes Hx Now: No Do You Feel Safe at Home: Yes Authorities Contacted: N/A Questionairres Past Medical History Past Medical History Have you ever been diagnosed with any of the following: Neurological Problems Seizures: No Cardiology Problems Hypercholesterolemia: Yes Congestive Heart Failure: No Hypertension: Yes Respiratory Problems Chronic Obstructive Pulmonary Disease (COPD): No Smoking: No Smoking Exposure: No Stomache/Intestinal Problems Hepatitis: No Genital/Urinary Problems Renal Disease: No Reproductive Problems Previous Pregnancies: Yes Musculoskeletal Problems Arthritis: Yes Head,Eye,Nose,Throat Problems Cataracts: Yes (Left) Endocrine Problems Diabetes Mellitus Type 1: No Diabetes Mellitus Type 2: Yes Other Problems Hospitalization: No Shingles: No Blood Transfusions: No Blood Transfusion Reaction: No Anesthesia Reactions: No Chicken Pox: No Cancer: No Subjective Visit Visit for: follow up visit and knee Immunization / Flu Flu Vaccine in the Last 12 Months: No Flu Vaccine Exclusion Criteria: No Exclusion Criteria History of Present Illness Chief complaint: 6WK POST OP Patient is several months out from a right total knee replacement he is doing well. She reports the pain is significantly better Pain Pain level (0-10): 2 Pain duration: ON AND OFF Pain location: anterior Pain quality: aching Pain timing: increases with activity Associated signs & symptoms: numbness Ambulatory data Ambulatory device: none Treatments Improvement with previous injections: No Improvement with PT: No Improvement with NSAIDS: no Review of Systems Review of Systems: All systems negative unless otherwise noted in HPI.
[2025-01-23 11:34] VITALS: BP 164/83; PULSE 88; RESP 20; TEMP 36.5; O2SAT 97; BMI 26.2
== END 2025-01-23 11:37 | disposition home or self-care (01) ==
LOC: HODSRG 11:08
PROVIDERS: PCP Physician Assistant; Referring Provider Physician Assistant; Supervising Provider Orthopaedic Surgery Adult Reconstructive Orthopaedic Surgery; Visit Provider Orthopaedic Surgery Adult Reconstructive Orthopaedic Surgery
DX: Z47.1 Aftercare following joint replacement surgery (principal); Z96.651 Presence of right artificial knee joint
CPT/HCPCS: 99213; G0463